=== PATIENT | female | born 1930 | race Caucasian/White ===

== ENCOUNTER 2016-10-23 19:10 | Emergency (ER) | payer MEDICARE, OTHER ==
[2016-10-23] MEDS ORDERED: Ketorolac Tromethamine 30 MG/ML VIAL ONE (20:09)
[2016-10-23] MEDS ORDERED: Ondansetron HCl/PF 4 MG/2 ML Vial ONE (20:10)
[2016-10-23 20:15] LABS: ALT (SGPT) 9 U/L (0-55); AST (SGOT) 12 U/L (5-34); Albumin 3.4 g/dL (3.4-4.8); Alkaline Phosphatase 72 U/L (40-150); Amylase 57 U/L (20-160); Anion Gap 12 mmol/L (10-20); BUN (Urea Nitrogen) 19 mg/dL (9.8-20.1); Bilirubin, Total 0.8 mg/dL (0.2-1.2); CRP (Inflammatory) Less than 0.50 mg/dL (= or < 0.5); Calc. Creatinine Clearance 0 mL/min (70-130); Calcium 8.1 mg/dL (7.8-10.44); Carbon Dioxide 24 mmol/L (23-31); Chloride 108 mmol/L (98-107); Estimated GFR-MDRD 90; Globulin 1.9 g/dL (2.4-3.5); Glucose 120 mg/dL (83-110); Lipase 20 U/L (8-78); Potassium 3.2 mmol/L (3.5-5.1); Protein, Total 5.3 g/dL (5.8-8.1); Sodium 141 mmol/L (136-145)
[2016-10-23 20:48] LABS: #Lymphocytes 0.7 thou/uL (1.20-3.40); #Monocytes 0.5 thou/uL (0.11-0.59); #Neutrophils 5.3 thou/uL (1.40-6.50); %Basophils 0.7 % (0.0-1.0); %Eosinophils 0.3 % (0.0-10.0); %Lymphocytes 11.1 % (21.0-51.0); %Monocytes 7.6 % (0.0-10.0); %Neutrophils 80.3 % (42.0-75.0); Hemoglobin 13.5 g/dL (12.0-16.0); Large Platelets SLIGHT; MDiff Complete? YES; Mean Corpuscular HGB CONC 37.3 g/dL (32.0-36.0); Mean Corpuscular Hemoglobin 34.4 pg (27.0-31.0); Mean Corpuscular Volume 92.2 fl (81.0-99.0); PLT Morphology Comment Appears Adequate; Platelet Count 132 thou/uL (130-400); RBC Distribution Width 10.4 % (11.5-14.5); RBC Morphology Normal; Red Blood Cell (RBC) Count 3.92 mill/uL (4.20-5.40); White Blood Cell (WBC) Count 6.6 thou/uL (4.8-10.8)
[2016-10-23 20:57] LABS: Blood, Urine Trace (Negative); Clarity Clear (Clear); Glucose, Urine (Dipstick) Negative (Negative); Leukocyte Negative (Negative); Nitrite Negative (Negative); Protein, Urine (Dipstick) 100 mg/dL (Neg-Trace); pH, Urine 7.5 (5.0-9.0)
[2016-10-23 20:58] LABS: Bilirubin Negative (Negative); Icto Negative (Negative)
[2016-10-23 21:04] LABS: WBC/HPF 0-3 HPF (0-3)
[2016-10-23 21:05] LABS: Bacteria/HPF Rare-Few HPF (None Seen); Squamous Epithelial 0-3 HPF (0-3)
== END 2016-10-23 23:25 | disposition home or self-care (01) ==
LOC: MADERS 19:10
DX: R10.13 Epigastric pain (principal); R11.2 Nausea with vomiting, unspecified; I10 Essential (primary) hypertension; Z87.891 Personal history of nicotine dependence; Z79.899 Other long term (current) drug therapy
CPT/HCPCS: 80053; 81003; 81015; 82150; 83605; 83690; 83880; 85025; 86140; 96374; 96375; J1885; J2405

== ENCOUNTER 2017-01-31 06:40 | Emergency (ER) | payer MEDICARE, OTHER ==
[2017-01-31] MEDS ORDERED: Ketorolac Tromethamine 30 MG/ML VIAL ONE (07:03)
[2017-01-31 07:38] LABS: #Eosinphils 0.1 thou/uL (0.0-0.7); #Monocytes 0.5 thou/uL (0.11-0.59); #Neutrophils 3.3 thou/uL (1.40-6.50); %Basophils 0.8 % (0.0-1.0); %Eosinophils 1.5 % (0.0-10.0); %Lymphocytes 20.7 % (21.0-51.0); %Monocytes 10.4 % (0.0-10.0); %Neutrophils 66.5 % (42.0-75.0); Hemoglobin 12.8 g/dL (12.0-16.0); Mean Corpuscular HGB CONC 35.5 g/dL (32.0-36.0); Mean Corpuscular Hemoglobin 33.5 pg (27.0-31.0); Mean Corpuscular Volume 94.4 fl (81.0-99.0); Mean Platelet Volume 10.5 fL (7.4-10.4); Platelet Count 137 thou/uL (130-400); RBC Distribution Width 11.1 % (11.5-14.5); Red Blood Cell (RBC) Count 3.83 mill/uL (4.20-5.40); White Blood Cell (WBC) Count 4.9 thou/uL (4.8-10.8)
[2017-01-31 07:52] LABS: ALT (SGPT) 9 U/L (8-55); AST (SGOT) 12 U/L (5-34); Albumin 3.9 g/dL (3.4-4.8); Alkaline Phosphatase 78 U/L (40-150); Anion Gap 14 mmol/L (10-20); BUN (Urea Nitrogen) 19 mg/dL (9.8-20.1); Bilirubin, Total 0.7 mg/dL (0.2-1.2); Calc. Creatinine Clearance 0 mL/min (70-130); Calcium 9.3 mg/dL (7.8-10.44); Carbon Dioxide 23 mmol/L (23-31); Chloride 105 mmol/L (98-107); Estimated GFR-MDRD 78; Globulin 2.3 g/dL (2.4-3.5); Glucose 107 mg/dL (83-110); Lipase 20 U/L (8-78); Potassium 3.8 mmol/L (3.5-5.1); Protein, Total 6.2 g/dL (6.0-8.3); Sodium 138 mmol/L (136-145)
[2017-01-31 08:09] LABS: Bilirubin Negative (Negative); Clarity Clear (Clear); Glucose, Urine (Dipstick) Negative (Negative); Leukocyte Negative (Negative); Nitrite Negative (Negative); Protein, Urine (Dipstick) Negative (Neg-Trace); Urobilinogen 0.2 mg/dL (0.2-1.0); pH, Urine 7.5 (5.0-9.0)
[2017-01-31 08:10] LABS: Bacteria/HPF None Seen HPF (None Seen); Blood, Urine Trace (Negative); Squamous Epithelial 0-3 HPF (0-3); WBC/HPF None Seen HPF (0-3)
== END 2017-01-31 08:23 | disposition short-term general hospital (02) ==
LOC: MADERS 06:40
DX: C79.51 Secondary malignant neoplasm of bone (principal); G95.29 Other cord compression
CPT/HCPCS: 80053; 81003; 81015; 83690; 85025; 93005; 96374; J1885

== ENCOUNTER 2017-05-31 15:04 | Emergency (ER) | payer MEDICARE, OTHER ==
[~2017-05-31 15:04] MED LIST: Iopamidol 370 76% 100 ML VIAL ONE; Sodium Chloride 0.9% 1,000 ML BAG ONE
[2017-05-31] MEDS ORDERED: Ondansetron HCl/PF 4 MG/2 ML Vial ONE (15:32)
[2017-05-31 15:52] LABS: ALT (SGPT) 21 U/L (8-55); AST (SGOT) 24 U/L (5-34); Albumin 4.2 g/dL (3.4-4.8); Alkaline Phosphatase 89 U/L (40-150); Anion Gap 17 mmol/L (10-20); BUN (Urea Nitrogen) 29 mg/dL (9.8-20.1); Bilirubin, Total 0.9 mg/dL (0.2-1.2); CKMB 2.1 ng/mL (0-6.6); Calc. Creatinine Clearance 0 mL/min (70-130); Calcium 9.9 mg/dL (7.8-10.44); Carbon Dioxide 25 mmol/L (23-31); Chloride 99 mmol/L (98-107); Estimated GFR-MDRD 71; Globulin 3.1 g/dL (2.4-3.5); Glucose 136 mg/dL (83-110); Lipase 22 U/L (8-78); Magnesium 2.2 mg/dL (1.6-2.6); Potassium 4.1 mmol/L (3.5-5.1); Protein, Total 7.3 g/dL (6.0-8.3); Sodium 137 mmol/L (136-145); Troponin I Less than 0.010 ng/mL (< 0.028)
[2017-05-31 16:01] LABS: Band 2 % (5-11); Hemoglobin 14.4 g/dL (12.0-16.0); Lymphocytes 2 % (21-51); MDiff Complete? YES; Mean Corpuscular HGB CONC 36.2 g/dL (32.0-36.0); Mean Corpuscular Volume 94.1 fl (81.0-99.0); Mean Platelet Volume 11.3 fL (7.4-10.4); Monocytes 5 % (0-10); Neutrophil 83 % (42-75); PLT Morphology Comment Appears Adequate; Platelet Count 138 thou/uL (130-400); RBC Distribution Width 10.7 % (11.5-14.5); RBC Morphology Normal; Reactive Lymphocytes 8 % (0-10); Red Blood Cell (RBC) Count 4.23 mill/uL (4.20-5.40); White Blood Cell (WBC) Count 6.8 thou/uL (4.8-10.8)
[2017-05-31] MEDS ORDERED: Promethazine HCl 25 MG/ML VIAL ONE (18:00)
--- NOTE | 2017-05-31 18:09 | CT ---
CT ABDOMEN AND PELVIS WITH CONTRAST: 05/31/17 COMPARISON: 07/02/10. HISTORY: Nausea and vomiting for two days. TECHNIQUE: Multiple contiguous axial images were obtained in a CT of the abdomen and pelvis with contrast. Elia nal reformats were performed. FINDINGS: The liver, gallbladder, kidneys, adrenal glands, spleen, and pancreas are unremarkable. There is a dilated loop of small bowel in the lower abdomen which demonstrates a small bowel feces s ign. This bowel measures approximately 4.6 cm in width. This appears to be the same loop of bowel th at was dilated on the prior CT. There appears to be a transition point to decompress small bowel loo ps in the left lower quadrant of the abdomen. The colon is decompressed. No free air, free fluid or stranding changes are seen in the abdomen or pelvis. The patient is status post hysterectomy. No abd ominal or pelvic lymphadenopathy are seen. Atherosclerotic calcifications are seen in the aorta. Degenerative changes are seen in the spine. The T11 vertebral body is sclerotic compared to the othe r vertebral bodies which is new compared to the prior examination and has a mottled appearance. No o ther suspicious osseous lesions are identified. IMPRESSION: 1. There is dilated small bowel in the lower abdomen with apparent transition point in the left lower quadrant of the abdomen. This maybe secondary to partial or complete small bowel obstruction. 2. Sclerotic appearance of the T11 vertebral body. This could represent a healing fracture. An osseous blastic metastasis is also a possibility. Correlate with history of malignancy. POS: [facility]
[2017-05-31 19:29] LABS: Bilirubin Negative (Negative); Blood, Urine Trace (Negative); Clarity Clear (Clear); Glucose, Urine (Dipstick) Negative (Negative); Leukocyte Negative (Negative); Nitrite Negative (Negative); Protein, Urine (Dipstick) Negative (Neg-Trace); Urobilinogen 0.2 mg/dL (0.2-1.0)
[2017-05-31 19:34] LABS: Bacteria/HPF Rare-Few HPF (None Seen); RBC/HPF 0-3 HPF (0-3); Squamous Epithelial 0-3 HPF (0-3)
== END 2017-05-31 21:25 | disposition short-term general hospital (02) ==
LOC: MADERS 15:04
DX: K56.60 Unspecified intestinal obstruction (principal); I10 Essential (primary) hypertension; Z87.891 Personal history of nicotine dependence
CPT/HCPCS: 36415; 74177; 80053; 81003; 81015; 82553; 83605; 83690; 83735; 84484; 85025; 87040; 87149; 93005; 96361; 96365; 96375; J2270; J2405; J2550; J7050

== ENCOUNTER 2017-11-10 06:35 | Emergency (ER) | payer MEDICARE, OTHER ==
[2017-11-10] MEDS ORDERED: methylPREDNISolone Sod Succ/PF 125 MG/2 ML VIAL ONE (06:54)
[2017-11-10] MEDS ORDERED: Ondansetron ODT 4 MG TAB ONE (07:40)
[2017-11-10 07:47] LABS: Anion Gap 13 mmol/L (10-20); BUN (Urea Nitrogen) 19 mg/dL (9.8-20.1); Calc. Creatinine Clearance 0 mL/min (70-130); Calcium 9.4 mg/dL (7.8-10.44); Carbon Dioxide 26 mmol/L (23-31); Chloride 104 mmol/L (98-107); Estimated GFR-MDRD 69; Glucose 112 mg/dL (83-110); Potassium 4.4 mmol/L (3.5-5.1); Sodium 139 mmol/L (136-145)
[2017-11-10 07:48] LABS: #Lymphocytes 0.7 thou/uL (1.20-3.40); #Monocytes 0.5 thou/uL (0.11-0.59); #Neutrophils 5.7 thou/uL (1.40-6.50); %Basophils 0.7 % (0.0-1.0); %Eosinophils 0.4 % (0.0-10.0); %Lymphocytes 10.4 % (21.0-51.0); %Monocytes 6.9 % (0.0-10.0); %Neutrophils 81.6 % (42.0-75.0); Hemoglobin 12.6 g/dL (12.0-16.0); Large Platelets SLIGHT; MDiff Complete? YES; Mean Corpuscular HGB CONC 34.4 g/dL (32.0-36.0); Mean Corpuscular Hemoglobin 34.1 pg (27.0-31.0); Mean Corpuscular Volume 99.1 fl (81.0-99.0); Mean Platelet Volume 11.3 fL (7.4-10.4); PLT Morphology Comment Appears Decreased; Platelet Count 106 thou/uL (130-400); RBC Distribution Width 11.9 % (11.5-14.5); Red Blood Cell (RBC) Count 3.69 mill/uL (4.20-5.40)
[2017-11-10 07:51] LABS: Troponin I Less than 0.010 ng/mL (< 0.028)
== END 2017-11-10 07:45 | disposition left against medical advice (07) ==
LOC: MADERS 06:35
DX: R06.00 Dyspnea, unspecified (principal); I10 Essential (primary) hypertension; Z85.038 Personal history of other malignant neoplasm of large intestine; Z87.891 Personal history of nicotine dependence; Z79.899 Other long term (current) drug therapy
CPT/HCPCS: 80048; 82553; 83880; 84484; 85025; 93005; 94640; 96374; J2930; J7620; Q0162

== ENCOUNTER 2017-12-25 00:06 | Emergency (ER) | payer MEDICARE, OTHER ==
[2017-12-25 01:26] LABS: INR-International Normal Ratio 0.9; PTT 31.5 SEC (22.9-36.1); Prothrombin Time 12.2 SEC (12.0-14.7)
[2017-12-25 01:35] LABS: ALT (SGPT) 16 U/L (8-55); AST (SGOT) 18 U/L (5-34); Albumin 4.1 g/dL (3.4-4.8); Alkaline Phosphatase 78 U/L (40-150); Anion Gap 17 mmol/L (10-20); BUN (Urea Nitrogen) 21 mg/dL (9.8-20.1); Bilirubin, Total 1.1 mg/dL (0.2-1.2); Calc. Creatinine Clearance 0 mL/min (70-130); Calcium 9.3 mg/dL (7.8-10.44); Carbon Dioxide 21 mmol/L (23-31); Chloride 106 mmol/L (98-107); Estimated GFR-MDRD 71; Globulin 2.4 g/dL (2.4-3.5); Glucose 127 mg/dL (83-110); Potassium 3.6 mmol/L (3.5-5.1); Protein, Total 6.5 g/dL (6.0-8.3); Sodium 140 mmol/L (136-145)
[2017-12-25 01:36] LABS: #Basophils 0.1 thou/uL (0.0-0.2); #Eosinphils 0.1 thou/uL (0.0-0.7); #Lymphocytes 0.5 thou/uL (1.20-3.40); #Monocytes 0.9 thou/uL (0.11-0.59); #Neutrophils 7.8 thou/uL (1.40-6.50); %Basophils 0.9 % (0.0-1.0); %Eosinophils 0.6 % (0.0-10.0); %Lymphocytes 5.2 % (21.0-51.0); %Monocytes 9.7 % (0.0-10.0); %Neutrophils 83.7 % (42.0-75.0); Hemoglobin 11.7 g/dL (12.0-16.0); Mean Corpuscular HGB CONC 37.1 g/dL (32.0-36.0); Mean Corpuscular Hemoglobin 35.4 pg (27.0-31.0); Mean Corpuscular Volume 95.5 fl (81.0-99.0); Mean Platelet Volume 10.1 fL (7.4-10.4); Platelet Count 164 thou/uL (130-400); RBC Distribution Width 15.1 % (11.5-14.5); White Blood Cell (WBC) Count 9.3 thou/uL (4.8-10.8)
[2017-12-25] MEDS ORDERED: Famotidine In NaCl 20 mg/50 ml Premix Bag ONE (02:06)
[2017-12-25] MEDS ORDERED: Aspirin 325 MG TAB ONE (02:19)
[2017-12-25] MEDS ORDERED: Sodium Chloride 0.9% 1,000 ML BAG ONE (09:05)
== END 2017-12-25 04:02 | disposition short-term general hospital (02) ==
LOC: MADERS 00:06
DX: K92.1 Melena (principal); I10 Essential (primary) hypertension
CPT/HCPCS: 36415; 80053; 82274; 82553; 84484; 85025; 85610; 85730; 93005; 96361; 96365; J7050

== ENCOUNTER 2018-02-07 18:03 | Emergency (ER) | payer MEDICARE, OTHER ==
[~2018-02-07 18:03] MED LIST changes: -Iopamidol 370 76% 100 ML VIAL ONE; +Sodium Chloride 0.9% 100 ML BAG ONE
[2018-02-07] MEDS ORDERED: Acetaminophen 500 MG TAB ONE ×2 (18:35)
[2018-02-07] MEDS ORDERED: Vancomycin HCl 500 MG VIAL ONE (18:36)
[2018-02-07] MEDS ORDERED: Cefepime 1 GM VIAL ONE (18:37)
[2018-02-07 18:57] LABS: Hemoglobin 9.8 g/dL (12.0-16.0); Mean Corpuscular HGB CONC 37.8 g/dL (32.0-36.0); Mean Corpuscular Hemoglobin 35.9 pg (27.0-31.0); Mean Corpuscular Volume 94.8 fl (81.0-99.0); Mean Platelet Volume 11.8 fL (7.4-10.4); Red Blood Cell (RBC) Count 2.72 mill/uL (4.20-5.40)
[2018-02-07 19:01] LABS: ALT (SGPT) 15 U/L (8-55); AST (SGOT) 12 U/L (5-34); Albumin 3.4 g/dL (3.4-4.8); Alkaline Phosphatase 58 U/L (40-150); Anion Gap 15 mmol/L (10-20); BUN (Urea Nitrogen) 14 mg/dL (9.8-20.1); Bilirubin, Total 1.2 mg/dL (0.2-1.2); Calc. Creatinine Clearance 0 mL/min (70-130); Calcium 8.9 mg/dL (7.8-10.44); Carbon Dioxide 25 mmol/L (23-31); Chloride 101 mmol/L (98-107); Estimated GFR-MDRD 78; Globulin 2.6 g/dL (2.4-3.5); Glucose 122 mg/dL (83-110); Potassium 3.9 mmol/L (3.5-5.1); Sodium 137 mmol/L (136-145)
[2018-02-07 19:03] LABS: Large Platelets SLIGHT; PLT Morphology Comment Appears Decreased
[2018-02-07 19:05] LABS: White Blood Cell (WBC) Count 0.1 thou/uL (4.8-10.8)
[2018-02-07 19:06] LABS: Platelet Count 14 thou/uL (130-400)
[2018-02-07 19:08] LABS: Manual Diff?? NO
--- NOTE | 2018-02-07 19:35 | RAD ---
CHEST ONE VIEW: 02/07/18 COMPARISON: 04/27/15. HISTORY: Fever. FINDINGS: There is a right sided Mediport catheter with the distal tip in the superior vena cava. There is athe rosclerosis of the aorta. Normal cardiac silhouette. The pulmonary vessels and hilum are normal. Cost ophrenic angles are clear. Hyperinflation, without consolidation or mass. no pneumothorax or osseous abnormalities. IMPRESSION: 1. Atherosclerosis. No acute cardiopulmonary process. 2. Hyperinflation. POS: [facility]
[2018-02-07 19:36] LABS: Bilirubin Negative (Negative); Blood, Urine Moderate (Negative); Clarity Clear (Clear); Glucose, Urine (Dipstick) Negative (Negative); Leukocyte Negative (Negative); Nitrite Negative (Negative); Protein, Urine (Dipstick) > or equal to 300 mg/dL (Neg-Trace)
[2018-02-07 19:45] LABS: Bacteria/HPF Rare-Few HPF (None Seen); Squamous Epithelial 0-3 HPF (0-3); WBC/HPF None Seen HPF (0-3)
[2018-02-07 19:46] LABS: Other Casts/LPF 0-3 COARSE GRAN LPF (0-3 Hyaline)
== END 2018-02-07 21:51 | disposition short-term general hospital (02) ==
LOC: MADERS 18:03
DX: A41.9 Sepsis, unspecified organism (principal); D70.9 Neutropenia, unspecified; I10 Essential (primary) hypertension; Z79.899 Other long term (current) drug therapy
CPT/HCPCS: 36415; 51701; 71045; 80053; 81003; 81015; 83605; 85025; 87040; 87077; 87086; 87149; 87186; 96365; 96366; 96368; A4353; J0692; J3370; J7050

== ENCOUNTER 2018-04-20 22:20 | Emergency (ER) | payer MEDICARE, OTHER ==
[~2018-04-20 22:20] MED LIST changes: -Sodium Chloride 0.9% 1,000 ML BAG ONE; -Sodium Chloride 0.9% 100 ML BAG ONE; +Sodium Chloride 0.9% 500 ML BAG ONE
[2018-04-20] MEDS ORDERED: Ondansetron HCl/PF 4 MG/2 ML Vial ONE (22:47)
== END 2018-04-21 00:18 | disposition home or self-care (01) ==
LOC: MADERS 22:20
DX: E86.0 Dehydration (principal); I10 Essential (primary) hypertension; Z87.891 Personal history of nicotine dependence; Z79.899 Other long term (current) drug therapy
CPT/HCPCS: 96361; 96374; J2405; J7050

== ENCOUNTER 2018-05-13 19:34 | Emergency (ER) | payer MEDICARE, OTHER ==
[~2018-05-13 19:34] MED LIST changes: +Iopamidol 370 76% 125 ML VIAL FS ONE; -Sodium Chloride 0.9% 500 ML BAG ONE
[2018-05-13 20:51] LABS: #Basophils 0.1 thou/uL (0.0-0.2); #Eosinphils 0.1 thou/uL (0.0-0.7); #Lymphocytes 0.4 thou/uL (1.20-3.40); #Monocytes 0.3 thou/uL (0.11-0.59); #Neutrophils 3.3 thou/uL (1.40-6.50); %Basophils 1.5 % (0.0-1.0); %Eosinophils 1.4 % (0.0-10.0); %Lymphocytes 10.3 % (21.0-51.0); %Monocytes 6.2 % (0.0-10.0); %Neutrophils 80.7 % (42.0-75.0); Hemoglobin 12.7 g/dL (12.0-16.0); Mean Corpuscular HGB CONC 36.1 g/dL (32.0-36.0); Mean Corpuscular Hemoglobin 33.4 pg (27.0-31.0); Mean Corpuscular Volume 92.6 fL (78.0-98.0); Platelet Count 123 thou/uL (130-400); RBC Distribution Width 12.2 % (11.5-14.5); White Blood Cell (WBC) Count 4.1 thou/uL (4.8-10.8)
[2018-05-13 21:22] LABS: ALT (SGPT) 15 U/L (8-55); AST (SGOT) 20 U/L (5-34); Albumin 4.1 g/dL (3.4-4.8); Alkaline Phosphatase 74 U/L (40-150); Anion Gap 15 mmol/L (10-20); BUN (Urea Nitrogen) 16 mg/dL (9.8-20.1); Bilirubin, Total 0.5 mg/dL (0.2-1.2); Calc. Creatinine Clearance 0 mL/min (70-130); Calcium 9.7 mg/dL (7.8-10.44); Carbon Dioxide 25 mmol/L (23-31); Chloride 103 mmol/L (98-107); Estimated GFR-MDRD 71; Globulin 2.5 g/dL (2.4-3.5); Glucose 188 mg/dL (83-110); Potassium 3.7 mmol/L (3.5-5.1); Protein, Total 6.6 g/dL (6.0-8.3); Sodium 139 mmol/L (136-145)
--- NOTE | 2018-05-13 22:58 | CT ---
CT CHEST WITH CONTRAST: HISTORY: Right shoulder pain. History of lymphoma. COMPARISON: None. TECHNIQUE: Multiple contiguous axial images were obtained in a CT of the chest with contrast. Coronal reformats were performed. FINDINGS: A calcified granuloma is seen in the left lower lobe. No suspicious pulmonary nodules are seen. No pneumothorax or pleural effusion is present. The heart is normal in size without focal cardiac abnormality. No hilar or mediastinal lymphadenopat hy is seen. There is a large mass at the cervicothoracic junction. This is in the supraclavicular region. This mass is multilobulated and measures 7 x 7 x 6.5 cm in size. This mass compresses the right internal jugular vein and extends from just posterior to the right internal jugular vein back to the vertebral body and down to the clavicle. This extends to the left of midline, and the proximal esophagus may be involved by this mass. There is a right-sided Mediport with its tip in the superior vena cava. Degenerative changes are see n in the spine. The visualized subdiaphragmatic structures are unremarkable. The patient has verteb roplasty cement within a lower thoracic vertebral body. IMPRESSION: Large right neck mass, as above. This is likely the patient's known malignancy. POS: [facility]
[2018-05-13] MEDS ORDERED: HYDROcodone/Acetaminophen 5/325 mg Tablet ONE (23:10)
== END 2018-05-13 23:19 | disposition home or self-care (01) ==
LOC: MADERS 19:34
DX: M25.511 Pain in right shoulder (principal); I10 Essential (primary) hypertension; Z79.899 Other long term (current) drug therapy
CPT/HCPCS: 36415; 71260; 80053; 83880; 84484; 85025; 93005

== ENCOUNTER 2018-05-28 20:40 | Emergency (ER) | payer MEDICARE, OTHER ==
--- NOTE | 2018-05-28 21:27 | RAD ---
RADIOGRAPH CHEST 2 VIEWS: 05/28/18 at 8:53 p.m. HISTORY: 87-year-old female with acute chest pain. FINDINGS: There is no air space density, pulmonary edema, pleural effusion, pneumothorax, or cardiomegaly. Ther e is a right sided implantable vascular access port with distal tip at the lower portion of the SVC. Right hemidiaphragm is mildly elevated. No interval change compared to 04/21/18. IMPRESSION: No acute cardiopulmonary findings. aniket [] POS: [facility]
[2018-05-28 22:17] LABS: ALT (SGPT) 15 U/L (8-55); AST (SGOT) 12 U/L (5-34); Albumin 3.5 g/dL (3.4-4.8); Alkaline Phosphatase 74 U/L (40-150); Anion Gap 10 mmol/L (10-20); BUN (Urea Nitrogen) 15 mg/dL (9.8-20.1); Bilirubin, Total 0.9 mg/dL (0.2-1.2); Calc. Creatinine Clearance 0 mL/min (70-130); Carbon Dioxide 28 mmol/L (23-31); Chloride 102 mmol/L (98-107); Estimated GFR-MDRD 82; Globulin 2.1 g/dL (2.4-3.5); Glucose 105 mg/dL (83-110); Potassium 3.2 mmol/L (3.5-5.1); Protein, Total 5.6 g/dL (6.0-8.3); Sodium 137 mmol/L (136-145)
[2018-05-28 22:19] LABS: Hemoglobin 10.1 g/dL (12.0-16.0); Mean Corpuscular HGB CONC 36.9 g/dL (32.0-36.0); Mean Corpuscular Hemoglobin 33.5 pg (27.0-31.0); Mean Corpuscular Volume 90.6 fL (78.0-98.0); Red Blood Cell (RBC) Count 3.02 mill/uL (4.20-5.40); White Blood Cell (WBC) Count 1.9 thou/uL (4.8-10.8)
[2018-05-28 22:20] LABS: Manual Diff?? YES; Mean Platelet Volume 12.1 fL (7.4-10.4); RBC Distribution Width 12.2 % (11.5-14.5)
[2018-05-28 22:23] LABS: Band 10 % (5-11); MDiff Complete? YES; Neutrophil 61 % (42-75); Platelet Count 41 thou/uL (130-400)
[2018-05-28 22:24] LABS: Lymphocytes 16 % (21-51); Metamyelocyte 2 % (0-0); Monocytes 6 % (0-10); Reactive Lymphocytes 2 % (0-10)
[2018-05-28 22:25] LABS: Blast 1 % (0-0)
[2018-05-28 22:43] LABS: CKMB 0.9 ng/mL (0-6.6); Troponin I 0.013 ng/mL (< 0.028)
[2018-05-28] MEDS ORDERED: Potassium Chloride 10 MEQ TAB ONE (23:40)
[2018-05-29 01:57] LABS: CKMB 0.8 ng/mL (0-6.6); Troponin I Less than 0.010 ng/mL (< 0.028)
== END 2018-05-29 01:13 | disposition home or self-care (01) ==
LOC: MADERS 20:40
DX: R07.9 Chest pain, unspecified (principal); I10 Essential (primary) hypertension; Z87.891 Personal history of nicotine dependence
CPT/HCPCS: 36415; 71046; 80053; 82553; 84484; 85025; 93005

== ENCOUNTER 2018-07-03 09:52 | Emergency (ER) | payer MEDICARE, OTHER ==
[2018-07-03] MEDS ORDERED: Morphine 4 MG/ML VIAL ONE (10:16)
[2018-07-03 10:36] LABS: Hemoglobin 11.9 g/dL (12.0-16.0); Mean Corpuscular HGB CONC 35.5 g/dL (32.0-36.0); Mean Corpuscular Hemoglobin 33.6 pg (27.0-31.0); Mean Corpuscular Volume 94.9 fL (78.0-98.0); Mean Platelet Volume 9.8 fL (7.4-10.4); Platelet Count 109 thou/uL (130-400); RBC Distribution Width 12.2 % (11.5-14.5); Red Blood Cell (RBC) Count 3.52 mill/uL (4.20-5.40); White Blood Cell (WBC) Count 2.9 thou/uL (4.8-10.8)
[2018-07-03 10:37] LABS: PTT 49.6 SEC (22.9-36.1); Prothrombin Time 13.6 SEC (12.0-14.7)
[2018-07-03 10:41] LABS: Band 9 % (5-11); Large Platelets SLIGHT; Lymphocytes 24 % (21-51); MDiff Complete? YES; Monocytes 11 % (0-10); Neutrophil 56 % (42-75); PLT Morphology Comment Appears Decreased
[2018-07-03 10:46] LABS: ALT (SGPT) 9 U/L (8-55); AST (SGOT) 17 U/L (5-34); Albumin 3.7 g/dL (3.4-4.8); Alkaline Phosphatase 70 U/L (40-150); Anion Gap 17 mmol/L (10-20); BUN (Urea Nitrogen) 10 mg/dL (9.8-20.1); Bilirubin, Total 1.6 mg/dL (0.2-1.2); Calc. Creatinine Clearance 0 mL/min (70-130); Calcium 9.4 mg/dL (7.8-10.44); Carbon Dioxide 25 mmol/L (23-31); Chloride 98 mmol/L (98-107); Estimated GFR-MDRD Greater than 90; Globulin 2.6 g/dL (2.4-3.5); Glucose 103 mg/dL (83-110); Potassium 3.6 mmol/L (3.5-5.1); Protein, Total 6.3 g/dL (6.0-8.3); Sodium 136 mmol/L (136-145)
--- NOTE | 2018-07-03 11:03 | RAD ---
RADIOGRAPH CHEST 1 VIEW: Date: 07/03/18 Time: 1007 HOURS HISTORY: 87-year-old female with lymphoma. COMPARISON: 05/28/18. FINDINGS: There is a greater degree of elevation of the right hemidiaphragm on the current study compared to th e previous. The left hemidiaphragm is inferior to, outside of the field of view. No cardiomegaly. Pat ient is rotated to the left. No obvious widening of the mediastinal or hilar enlargement. The visuali zed lung valenzuela are grossly clear. Right lateral costophrenic angle is sharp. No pneumothorax. Again noted is the right IJ implantable vascular access port with distal tip overlying somewhere in the isabella inity of the SVC/right atrial junction. IMPRESSION: 1. Elevation of the right hemidiaphragm, new or greater than on 05/28/18. 2. No other acute findings. 3. Right-sided implantable vascular access port. CAMILA [] POS: [facility]
[2018-07-03] MEDS ORDERED: Morphine 10 MG/ML VIAL ONE (13:20)
== END 2018-07-03 13:45 | disposition home or self-care (01) ==
LOC: MADERS 09:52
DX: G89.29 Other chronic pain (principal); M54.2 Cervicalgia; R22.1 Localized swelling, mass and lump, neck
CPT/HCPCS: 71045; 80053; 85025; 85610; 85730; 94760; 96372; 96374; J2270